=== PATIENT | male | born 1995 | race African-American/Black ===

== ENCOUNTER 2017-06-30 00:05 | Emergency (ER) | payer OTHER ==
[~2017-06-30 00:05] MED LIST: AZITTAB PO; MULTTAB PO
[2017-06-30 00:16] VITALS: Ht 147.3 cm
[2017-06-30 00:38] LABS: URINE APPEARANCE CLEAR (CLEAR); URINE BILIRUBIN NEG (NEG); URINE COLOR YELLOW; URINE NITRITE NEG (NEG); URINE SPECIFIC GRAVITY 1.019 (1.000-1.030); UROBILINOGEN NEG (NEG); ZZUR CULT IF INDIC CLEAN CATCH NO
[2017-06-30 00:41] LABS: MANUAL MICROSCOPIC REQUIRED? NO; REVIEW REQ? NO
[2017-06-30] MEDS ORDERED: LORAZEPAM 2 MG/ML 1 ML VIAL IM STA (00:49)
[2017-06-30] MEDS ORDERED: HALOPERIDOL LACTATE 5 MG/ML 1 ML VIAL IM STA (00:49)
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
[2017-06-30 01:03] LABS: BASO % 0.2 %; BASO ABS # 0.03 K/uL (0-0.2); COMPLETE YES; EOS % 0.2 %; HEMATOCRIT 46.5 % (42-52); IG% 0.4 %; LYMPH % 16.8 %; LYMPH ABS # 2.28 K/uL (1.2-3.4); MEAN CELL VOLUME 88.7 fL (80-100); MEAN CORPUSCULAR HEMOGLOBIN 32.3 pg (25-34); MEAN CORPUSCULAR HGB CONC 36.3 g/dl (32-36); MEAN PLATELET VOLUME 9.8 fL (7.4-10.4); MONO % 7.6 %; NEUT % 74.8 %; PLATELET COUNT 196 K/uL (130-400); RED BLOOD COUNT 5.24 M/uL (4.7-6.1); WHITE BLOOD COUNT 13.57 K/uL (4.8-10.8)
[2017-06-30 01:11] LABS: BENZODIAZEPINE, URINE NEG (NEG); COCAINE,URINE NEG (NEG); PHENCYCLIDINE, URINE NEG (NEG)
[2017-06-30 01:30] LABS: ALT/SGPT 31 U/L (12-78); BLOOD UREA NITROGEN 16 mg/dl (7-18); BUN/CREATININE RATIO 10.8 (10-20); CALCIUM 9.1 mg/dl (8.5-10.1); CARBON DIOXIDE 24 mmol/L (21-32); CHLORIDE 99 mmol/L (98-107); GLUCOSE 101 mg/dl (70-99)
[2017-06-30 01:34] LABS: POTASSIUM 4.1 mmol/L (3.5-5.1); SODIUM 136 mmol/L (136-145)
[2017-06-30] MEDS ORDERED: LTHSR/300 PO (01:34)
[2017-06-30] MEDS ORDERED: LURA80TA PO (01:34)
[2017-06-30 01:35] LABS: ALKALINE PHOSPHATASE 74 U/L (45-117)
[2017-06-30 01:39] LABS: AST/SGOT 40 U/L (15-37)
[2017-06-30 01:54] LABS: ACETAMINOPHEN < 2 ug/ml (10-30); LITHIUM 0.7 mMOL/L (0.6-1.2)
[2017-06-30 02:54] VITALS: TEMP 37
[2017-06-30] MEDS ORDERED: HALOPERIDOL 5 MG TAB PO STA (07:32)
[2017-06-30] MEDS ORDERED: LORAZEPAM 1 MG TAB PO STA (07:32)
[2017-06-30] MEDS ORDERED: LORAZEPAM 1 MG TAB SL STA (10:31)
[2017-06-30] MEDS ORDERED: LITHIUM CARBONATE 300 MG TAB PO STA (11:16)
[2017-06-30] MEDS ORDERED: LURASIDONE HCL 40 MG TAB PO STA (11:16)
--- NOTE | 2017-06-30 14:31 | EMERGENCY ROOM VISIT NOTE ---
ED Visit Note First contact with patient: 06:32 I assumed care at the change of shift, Dr. Jha had been the physician prior to me. The patient presents with aggressive behavior. He seemed acutely psychotic. A 302 petition was generated. A bed search was being performed for an involuntary psychiatric stay. While under my care, the patient received oral Haldol and oral Ativan. He was given a second dose of oral Ativan. He was given his normal daily oral medications of Azure and Latuda. The patient has not been aggressive while under my care-the oral medications seem to be working nicely. He was accepted at [facility]. He is being transported to their facility. The paperwork for transfer completed. Diagnosis: Psychosis. Aggressive behavior.
[2017-06-30 15:44] VITALS: BP 128/69; PULSE 87; O2SAT 99
== END 2017-06-30 14:31 ==
LOC: EDBD 00:05 → C.EDA 00:06
DX: Z00.8 Encounter for other general examination (principal); Z79.899 Other long term (current) drug therapy; F39 Unspecified mood [affective] disorder

== ENCOUNTER 2017-11-25 20:42 | Emergency (ER) | payer OTHER ==
[~2017-11-25] VITALS: Ht 162.6 cm; Wt 81.5 kg
[~2017-11-25 20:42] MED LIST changes: -AZITTAB PO; +LTHSR/300 PO; +LURA80TA PO; -MULTTAB PO
[2017-11-25 20:51] VITALS: TEMP 37.2; Ht 162.6 cm; Wt 81.5 kg
[2017-11-25] MEDS ORDERED: LORAZEPAM 2 MG/ML 1 ML VIAL IV STA (21:38)
[2017-11-25] MEDS ORDERED: HALOPERIDOL LACTATE 5 MG/ML 1 ML VIAL IM STA (21:38)
[2017-11-25] MEDS ORDERED: RBX500 PO (22:05)
[2017-11-25] MEDS ORDERED: PALI156I INJ (22:05)
[2017-11-25] MEDS ORDERED: OMEG10007 PO (22:05)
[2017-11-25] MEDS ORDERED: MULT-506 PO (22:05)
[2017-11-25 22:07] LABS: BASO % 0.1 %; BASO ABS # 0.01 K/uL (0-0.2); EOS % 0.5 %; EOS ABS # 0.05 K/uL (0-0.5); HEMATOCRIT 44.4 % (42-52); HEMOGLOBIN 16.5 g/dL (14.0-18.0); IG# 0.02 K/uL (0.00-0.02); LYMPH % 22.7 %; LYMPH ABS # 2.26 K/uL (1.2-3.4); MEAN CELL VOLUME 86.2 fL (80-100); MEAN CORPUSCULAR HGB CONC 37.2 g/dl (32-36); MEAN PLATELET VOLUME 8.9 fL (7.4-10.4); MONO % 9.5 %; MONO ABS # 0.95 K/uL (0.11-0.59); NEUT ABS # 6.66 K/uL (1.4-6.5); PLATELET COUNT 182 K/uL (130-400); RED CELL DISTRIBUTION WIDTH CV 12.6 % (11.5-14.5); WHITE BLOOD COUNT 9.95 K/uL (4.8-10.8)
[2017-11-25 22:26] LABS: ALBUMIN 4.3 gm/dl (3.4-5.0); CALCIUM 9.3 mg/dl (8.5-10.1); CREATININE 1.12 mg/dl (0.60-1.40); POTASSIUM 3.6 mmol/L (3.5-5.1)
[2017-11-25 22:37] LABS: TOTAL PROTEIN 8.2 gm/dl (6.4-8.2)
--- NOTE | 2017-11-25 23:09 | EMERGENCY ROOM VISIT NOTE ---
History Report prepared by Stephaniibaudi: Candelaria Manley Under the Supervision of: Dr. Jamin Cooper D.O. First contact with patient: 21:15 Chief Complaint: MENTAL HEALTH EVALUATION Stated Complaint: [facility] History of Present Illness The patient is a 22 year old male who presents to the Emergency Room for a mental health evaluation. Per pillowcase sewer, the police found the patient in the HUB in a manic phase where he was making threats to others. 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 The patient denies hearing any voices. He denies any thoughts 1 to harm himself or harm anyone else. The patient states "I just want some food". Pt denies headache, change in vision, fevers, chest pain, shortness of breath, nausea, vomiting, diarrhea, pain with urination, and melena. History is limited secondary to the patient's manic state. Source of History: patient Position: other (generalized) Quality: other (mental health evaluation) Modifying Factors (Relieving): other (none) Associated Symptoms: No chest pain, No SOB, No nausea, No vomiting Review of Systems See HPI for pertinent positives & negatives. A total of 10 systems reviewed and were otherwise negative. Past Medical & Surgical Medical Problems: (1) Asthma (2) Pneumonia Surgical Problems: (1) History of arthroscopic knee surgery Family History Patient reports no known family medical history. Social History Smoking Status: Never Smoker Alcohol Use: occasionally Drug Use: none Marital Status: single Current/Historical Medications Scheduled Fish Oil ([place]-3), 1 CAP PO DAILY Multivitamin (Multivitamin), 1 TAB PO DAILY Paliperidone Palmitate (Invega Sustenna), 156 MG INJ MONTHLY Scheduled PRN Methocarbamol (Methocarbamol), 500 MG PO DAILY PRN for PRN Allergies Coded Allergies: Clarithromycin (Verified Adverse Reaction, Unknown, vomit, 06/30/17) Physical Exam Vital Signs Date Time Temp Pulse Resp B/P (MAP) Pulse Ox O2 Delivery O2 Flow Rate FiO2 11/25/17 23:18 77 18 121/62 97 Room Air 11/25/17 20:51 37.2 100 18 135/95 97 Room Air Physical Exam GENERAL: walking around, alert, well appearing, well nourished, no distress, non -toxic EYE EXAM: normal conjunctiva. OROPHARYNX: no exudate, no erythema, lips, buccal mucosa, and tongue normal and mucous membranes are moist NECK: supple, no nuchal rigidity, no adenopathy, non-tender LUNGS: Clear to auscultation. Normal chest wall mechanics HEART: no murmurs, S1 normal and S2 normal ABDOMEN: abdomen soft, non-tender, normo-active bowel sounds, no masses, no rebound or guarding. BACK: Back is symmetrical on inspection and there is no deformity, no midline tenderness, no CVA tenderness. SKIN: no rashes and no bruising UPPER EXTREMITIES: upper extremities are grossly normal. LOWER EXTREMITIES: No pitting edema. NEURO EXAM: Normal sensorium, cranial nerves II-XII grossly intact, normal speech, no gross weakness of arms, no gross weakness of legs. PSYCH: Racing thoughts with grandiose ideas. Denies auditory or visual hallucinations. Tangential, flight of ideas. Walking out of the room. Walking throughout the hallway. Unable to stay in one area. Medical Decision & Procedures Laboratory Results 11/25/17 22:00 Red Blood Count 5.15, Mean Corpuscular Volume 86.2, Mean Corpuscular Hemoglobin 32.0, Mean Corpuscular Hemoglobin Concent 37.2, Mean Platelet Volume 8.9, Neutrophils (%) (Auto) 67.0, Lymphocytes (%) (Auto) 22.7, Monocytes (%) (Auto) 9.5, Eosinophils (%) (Auto) 0.5, Basophils (%) (Auto) 0.1, Neutrophils # (Auto) 6.66, Lymphocytes # (Auto) 2.26, Monocytes # (Auto) 0.95, Eosinophils # (Auto) 0.05, Basophils # (Auto) 0.01 11/25/17 22:00 Test 11/25/17 21:15 11/25/17 22:00 Urine Color YELLOW Urine Appearance CLEAR (CLEAR) Urine pH 6.0 (4.5-7.5) Urine Specific [place] 1.009 (1.000-1.030) Urine Protein NEG (NEG) Urine Glucose (UA) NEG (NEG) Urine Ketones NEG (NEG) Urine Occult Blood NEG (NEG) Urine Nitrite NEG (NEG) Urine Bilirubin NEG (NEG) Urine Urobilinogen NEG (NEG) Urine Leukocyte Esterase NEG (NEG) Urine Opiates Screen NEG (NEG) Urine Methadone, Qualitative NEG (NEG) Urine Barbiturates NEG (NEG) Urine Phencyclidine (PCP) Level NEG (NEG) Ur Amphetamine/Methamphetamine NEG (NEG) MDMA (Ecstasy) Screen NEG (NEG) Urine Benzodiazepines Screen NEG (NEG) Urine Cocaine Metabolite NEG (NEG) Urine Marijuana (THC) NEG (NEG) White Blood Count 9.95 K/uL (4.8-10.8) Red Blood Count 5.15 M/uL (4.7-6.1) Hemoglobin 16.5 g/dL (14.0-18.0) Hematocrit 44.4 % (42-52) Mean Corpuscular Volume 86.2 fL (80-100) Mean Corpuscular Hemoglobin 32.0 pg (25-34) Mean Corpuscular Hemoglobin Concent 37.2 g/dl (32-36) Platelet Count 182 K/uL (130-400) Mean Platelet Volume 8.9 fL (7.4-10.4) Neutrophils (%) (Auto) 67.0 % Lymphocytes (%) (Auto) 22.7 % Monocytes (%) (Auto) 9.5 % Eosinophils (%) (Auto) 0.5 % Basophils (%) (Auto) 0.1 % Neutrophils # (Auto) 6.66 K/uL (1.4-6.5) Lymphocytes # (Auto) 2.26 K/uL (1.2-3.4) Monocytes # (Auto) 0.95 K/uL (0.11-0.59) Eosinophils # (Auto) 0.05 K/uL (0-0.5) Basophils # (Auto) 0.01 K/uL (0-0.2) RDW Standard Deviation 40.0 fL (36.4-46.3) RDW Coefficient of Variation 12.6 % (11.5-14.5) Immature Granulocyte % (Auto) 0.2 % Immature Granulocyte # (Auto) 0.02 K/uL (0.00-0.02) Anion Gap 8.0 mmol/L (3-11) Est Creatinine Clear Calc Drug Dose 98.0 ml/min Estimated GFR () 106.0 Estimated GFR (Non- 91.5 BUN/Creatinine Ratio 10.4 (10-20) Calcium Level 9.3 mg/dl (8.5-10.1) Total Bilirubin 0.7 mg/dl (0.2-1) Direct Bilirubin 0.2 mg/dl (0-0.2) Aspartate Amino Transf (AST/SGOT) 33 U/L (15-37) Alanine Aminotransferase (ALT/SGPT) 29 U/L (12-78) Alkaline Phosphatase 72 U/L (45-117) Total Protein 8.2 gm/dl (6.4-8.2) Albumin 4.3 gm/dl (3.4-5.0) Thyroid Stimulating Hormone (TSH) 2.260 uIu/ml (0.300-4.500) Ethyl Alcohol mg/dL < 3.0 mg/dl (0-3) Laboratory results per my review. Medications Administered Medications (Trade) Dose Ordered Sig/Natalie Route Start Time Stop Time Status Last Admin Dose Admin Haloperidol Lactate (Haldol Inj) 10 mg NOW STAT IM 11/25/17 21:38 11/25/17 21:40 DC 11/25/17 23:15 10 MG Lorazepam (Ativan Inj) 1 mg NOW STAT IV 11/25/17 21:38 11/25/17 21:40 DC 11/25/17 23:15 1 MG ED Course ED COURSE: Vital signs were reviewed and showed normal The patients medical record was reviewed The above diagnostic studies were performed and reviewed. ED treatments and interventions as stated above. 2131: The patient was evaluated in room A5. A complete history and physical examination was performed. 2137: Ordered Ativan Inj 1 mg IV, Haldol Inj 10 mg IM. 0100: The patient is sleeping. 0130: The patient was signed out to Dr. Canela at the change of shifts. Medical Decision Differential diagnosis: Etiologies such as mood disorder, infection, hypoglycemia, electrolyte abnormalities, cardiac sources, intracerebral event, toxicologic, neurologic, as well as others were entertained. Patient is a 22-year-old male who presents to ER who is brought in by police as he was wandering around aimlessly making statements that he was giving out billions of dollars. CBC all BMP, LFTs, bilirubin and TSH was unremarkable. Urine tox was negative. Alcohol was negative. UA was negative. Patient was medically stable. He continued to ambulate ER and was difficult to confined to his room. Second or 2 this is given Haldol and Ativan. After sedation he rested comfortably. 302 was signed as I do not feel as though he was able to make this decision on his own to sign a 201. Bedside troponin continue. Patient was signed out to Dr. Canela. Medication Reconcilliation Current Medication List: was personally reviewed by me Blood Pressure Screening Patient's blood pressure: Normal blood pressure Impression Primary Impression: Mood disorder Additional Impression: Manic behavior Critical Care I have personally spent 35 minutes of critical care time in the direct management of this patient. This includes bedside care, interpretation of diagnostic studies, and testing, discussion with consultants, patient, and family members, and other required patient management activities. This 35 minutes is in excess of all separately billable procedures. Scribe Attestation The scribe's documentation has been prepared under my direction and personally reviewed by me in its entirety. I confirm that the note above accurately reflects all work, treatment, procedures, and medical decision making performed by me. Departure Information Dispostion Still a Patient Referrals [facility] (PCP) Patient Instructions My [facility] Problem Qualifiers
[2017-11-26 06:26] VITALS: BP 117/65; PULSE 68; O2SAT 98
--- NOTE | 2017-11-26 07:54 | EMERGENCY ROOM VISIT NOTE ---
ED Visit Note First contact with patient: 01:36 22 yr old male patient evaluated and medically cleared by Dr Cooper after patient arrived for william requiring sedation. He was stable throughout night and signed out to me awaiting placement. Accepted to [facility].
== END 2017-11-26 06:27 ==
LOC: EDBD 20:42 → C.EDA 20:44
DX: F30.9 Manic episode, unspecified (principal); J45.909 Unspecified asthma, uncomplicated; Z88.1 Allergy status to other antibiotic agents